=== PATIENT | male | born 1955 | race Caucasian/White ===

== ENCOUNTER 2018-10-29 06:45 | Day surgery (SDC) | payer MEDICAID ==
[~2018-10-29] VITALS: Ht 172.7 cm; Wt 110.9 kg
[~2018-10-29 06:45] MED LIST: SODIUM CHLORIDE 0.9% 1,000 ML IV ONE
[2018-10-29] MEDS ORDERED: ALBUTEROL SULFATE 2.5 MG/0.5 ML NEB SOLUTION NEB ONE (06:46)
[2018-10-29] MEDS ORDERED: LIDOCAINE 2% 30 ML JELLY TP ONE (06:46)
[2018-10-29] MEDS ORDERED: BENZOCAINE 20% 50 MCG/SPRAY 57 GM TP ONE (06:46)
[2018-10-29] MEDS ORDERED: LIDOCAINE 4% 50 ML SOLUTION TP ONE (06:46)
[2018-10-29] MEDS ORDERED: SODIUM CHLORIDE 0.9% 1,000 ML IV ONE (07:00)
[2018-10-29] MEDS ORDERED: FentaNYL CITRATE-PF 100 MCG/2 ML VIAL ONE (07:34)
[2018-10-29] MEDS ORDERED: MIDAZOLAM HCL 2 MG/2 ML VIAL ONE (07:34)
[2018-10-29 07:40] LABS: GLUCOMETER DEV NAME(LOC) SDS.; GLUCOSE,POINT OF CARE 121 MG/DL (70-110)
[2018-10-29] MEDS ORDERED: VENL-68 PO (07:46)
[2018-10-29] MEDS ORDERED: OMEP20 PO (07:46)
[2018-10-29] MEDS ORDERED: METF-445 PO (07:46)
[2018-10-29] MEDS ORDERED: LORA10TA7 PO (07:46)
[2018-10-29] MEDS ORDERED: FERR-89 PO (07:46)
[2018-10-29] MEDS ORDERED: ATOR40TA28 PO (07:46)
[2018-10-29] MEDS ORDERED: BUPR-93 PO (07:46)
[2018-10-29] MEDS ORDERED: LISI-662 PO (07:46)
[2018-10-29] MEDS ORDERED: MEMA10TA11 PO (07:46)
[2018-10-29] MEDS ORDERED: ASPI81 PO (07:46)
[2018-10-29] MEDS ORDERED: ASCO500 PO (07:46)
[2018-10-29] MEDS ORDERED: MethylPREDNISolone SOD SUCC 125 MG/2 ML VIAL IVP ONE (09:30)
[2018-10-29] MEDS ORDERED: MethylPREDNISolone SOD SUCC 125 MG/2 ML VIAL ONE (09:37)
[2018-10-29] MEDS ORDERED: OXYGEN THERAPY IH SCH (20:00)
== END 2018-10-29 11:25 | disposition home or self-care (01) ==
LOC: SURGERY 06:45
PROVIDERS: ATTEND Internal Medicine Critical Care Medicine
DX: J38.4 Edema of larynx (principal); B37.0 Candidal stomatitis; J45.909 Unspecified asthma, uncomplicated; J98.8 Other specified respiratory disorders; I10 Essential (primary) hypertension; E11.9 Type 2 diabetes mellitus without complications; K74.60 Unspecified cirrhosis of liver; G47.33 Obstructive sleep apnea (adult) (pediatric); Z79.899 Other long term (current) drug therapy; Z98.890 Other specified postprocedural states
CPT/HCPCS: 31623; 31624; 71045; 82962; 87015; 87070; 87077; 87101; 87205; 87206; 87220; 88108; 88312; J2250; J2930; J3010; J7030